=== PATIENT | female | born 1995 | race Caucasian/White ===

== ENCOUNTER 2016-07-12 12:30 | Emergency (ER) | payer BC ==
[2016-07-12 13:25] LABS: HEMOGLOBIN 13.8 gm/dl (12.3-15.3); RED BLOOD COUNT 4.6 M/UL (4.00-5.10); WHITE BLOOD COUNT 10.7 K/UL (4.5-11.0)
[2016-07-12 13:59] LABS: BUN/CREATININE RATIO 21 (0-10)
== END 2016-07-12 16:05 | disposition home or self-care (01) ==
LOC: ER1 12:30
PROVIDERS: Physician Assistant
DX: O23.41 Unspecified infection of urinary tract in pregnancy, first trimester (principal); Z3A.08 8 weeks gestation of pregnancy
CPT/HCPCS: 36415; 80053; 81001; 85025; 87086; 96374; 96375; 96376; 99284; J0696; J2270; J2405; J7030; J7050